=== PATIENT | male | born 1980 | race Caucasian/White ===

== ENCOUNTER 2023-04-25 07:44 | Outpatient (CLI) | payer OTHER, SELFPAY ==
--- NOTE | ~2023-04-25 | XR_ITS ---
Supine and upright views of the abdomen Clinical history: Right flank pain COMPARISON: 12/20/2018 Findings: Bowel gas pattern is nonspecific. No evidence for obstruction or free air. Bilateral renal stones are present, largest at the right lower pole measuring 8 mm.. Osseous structures are intact. Impression: Bilateral nephrolithiasis, as above. Reviewed, dictated and finalized at location [facility]. Impression: Bilateral nephrolithiasis, as above.
--- NOTE | ~2023-04-25 | CT_ITS ---
EXAMINATION: CT abdomen pelvis wo con DATE: 04/25/2023 08:24 INDICATION: Right flank pain. History of kidney stones. TECHNIQUE: Computed tomography (CT) of the abdomen and pelvis was performed without intravenous contr ast. Automated exposure control and iterative reconstruction technique were employed. Exam dose: 998 .16 mGy-cm total exam DLP. COMPARISON: 04/25/2023 KUB FINDINGS: The lung bases are clear of infiltrate or consolidation. Normal heart size. No pericardial or pleural effusion. The liver, gallbladder, bile ducts, spleen, pancreas, pancreatic duct and adrenal glands are unremark able. No renal mass lesion is evident on this limited noncontrast examination. Approximately 7.4 mm lower pole nonobstructing right renal calculus with attenuation of 994 Hounsfiel d units. Pinpoint nonobstructing mid left renal calculus. 3.2 mm mid left renal nonobstructing calculus. No ureteral calculus or hydroureteronephrosis. Mild prostate enlargement and calcification. The urinary bladder appears unremarkable. Small bilateral fat-containing inguinal hernias. Small fat-containing umbilical hernia. Normal caliber of the abdominal aorta. No intraperitoneal or retroperitoneal or pelvic mass lesion or adenopathy or ascites. Normal appendix. No bowel obstruction, bowel wall thickening, pneumatosis or intraperitoneal free air . No suspicious osteolytic or osteoblastic lesions. IMPRESSION: Bilateral nonobstructive nephrolithiasis Mild prostate enlargement and calcification Small bilateral fat-containing inguinal hernias and umbilical hernia Reviewed, dictated and finalized at [facility]. Reviewed, dictated and finalized at location B.
== END 2023-04-25 07:45 | disposition home or self-care (01) ==
PROVIDERS: Visit Provider Nurse Practitioner
DX: R10.9 Unspecified abdominal pain (principal); N20.0 Calculus of kidney; K40.20 Bilateral inguinal hernia, without obstruction or gangrene, not specified as recurrent
CPT/HCPCS: 74018; 74176; 87086